=== PATIENT | male | born 1995 | race African-American/Black ===

== ENCOUNTER 2022-05-05 14:58 | Emergency (ER) | payer MEDICAID ==
[~2022-05-05] VITALS: Ht 175.3 cm; Wt 70.0 kg
[2022-05-05 15:03] VITALS: BP 133/65
[2022-05-05] MEDS ORDERED: KETOROLAC 60MG/2ML VIAL IM ONE (18:15)
[2022-05-05] MEDS ORDERED: ACETAMINOPHEN 325MG TABLET PO ONE (18:15)
[2022-05-05] MEDS ORDERED: LIDOCAINE 5% PATCH TOP SCH (18:15)
[2022-05-05 18:54] LABS: CLARITY URINE CLEAR (CLEAR); COLOR URINE YELLOW (YELLOW); KETONES URINE TRACE (NEGATIVE); LEUKOCYTE ESTERASE URINE NEGATIVE (NEGATIVE); NITRITE URINE NEGATIVE (NEGATIVE); OCCULT BLOOD URINE NEGATIVE (NEGATIVE); PH URINE 5.5 (4.5-8.0); PROTEIN URINE NEGATIVE (NEGATIVE); SPECIFIC GRAVITY URINE 1.027 (1.005-1.030)
== END 2022-05-05 18:43 | disposition left against medical advice (07) ==
LOC: ER 14:58
DX: M54.89 Other dorsalgia (principal)
CPT/HCPCS: 81003; 99283